=== PATIENT | female | born 1990 | race Two or more races ===

== ENCOUNTER 2025-05-07 18:01 | Emergency (ER) | payer MEDICAID, SELFPAY ==
[2025-05-07 18:02] VITALS: BMI 21.9
[2025-05-07 18:24] VITALS: BP 145/98; PULSE 86; RESP 16; TEMP 37; O2SAT 97; BMI 21.9
--- NOTE | 2025-05-07 18:38 | PD.EDEXREM ---
ED Extremity Problem RME/HPI General Chief complaint: Extremity Problem,Nontraumatic Stated complaint: LEFT LEG PAIN AND UNABLE TO FEEL LEG FOR 6 MONTHS Time Seen by Provider: 05/07/25 18:33 Arrival date/time: 05/07/25 18:01 34F with no significant PMH presents to ED with 6 months of intermittent LLE pain and paresthesia that starts in L lower back and radiates to LLE along sciatic nerve pain. Limitations: no limitations Related Data Previous Rx's ?Medication ?Instructions ?Recorded gabapentin 300 mg capsule 300 mg PO BID PRN nerve pain #10 05/07/25 caps Allergies Allergy/AdvReac Type Severity Reaction Status Date / Time Penicillins Allergy Severe Rash Verified 05/07/25 18:02 Review of Systems Review of Systems Systems Reviewed: All systems reviewed, normal except as documented Musculoskeletal Musculoskeletal: Reports as per HPI, Reports back pain and Reports radiating pain into limb Past Medical History Past Medical History NEUROLOGIC: Negative Neurological Disorders or Seizures CARDIAC: Negative Cardiac Disorders or Congestive Heart Failure RESPIRATORY: Negative Chronic Obstructive Pulmonary Disease (COPD) GASTROINTESTINAL: Negative Gastrointestinal Disorders GENITOURINARY: Negative Genitourinary Disorders or Renal Disease REPRODUCTIVE: Positive Previous Pregnancies MUSCULOSKELETAL: Negative Musculoskeletal Disorders ENDOCRINE: Negative Endocrine Disorders, Diabetes Mellitus Type 1 or Diabetes Mellitus Type 2 HEMATOLOGIC: Positive Blood Disorders and Anemia PSYCHO/SOCIAL: Negative Psychiatric Problems, Depression or Eating Disorder OTHER HISTORY: Positive Chicken Pox; Negative Hospitalization, Autoimmune Disease, Shingles, Blood Transfusions, Blood Transfusion Reaction, Anesthesia Reactions or Cancer Family History FAMILY HISTORY: Positive Family Cardiac Disorders and Family Surgery; Negative Family Psychiatric Problems, Family Respiratory Disorders, Family Gastrointestinal Problems, Family Cancer or Family Anesthesia Reaction Surgical History SURGICAL: Positive Open Reduction Internal Fixation (Left heel, has a plate) Social History SMOKING STATUS: Never smoker ED Exam General Limitations: Present no limitations General appearance: Present alert, in no apparent distress and anxious Head Head exam: Present atraumatic Neck Neck exam: Present normal inspection, full ROM and trachea midline Chest Chest inspection: Present normal inspection and symmetric chest wall rise Extremities Exam Extremities exam: Present normal inspection and full ROM Neurological Exam Neurological exam: Present alert and oriented X3 Psychiatric Psychiatric exam: Present normal affect and anxious Skin Skin exam: Present warm, dry, intact and normal color Course Quality Measures none Vital Signs Vital signs: Vital Signs Temperature 98.6 F 05/07/25 18:24 Pulse Rate 86 05/07/25 18:24 Respiratory Rate 16 05/07/25 18:24 Blood Pressure 145/98 H 05/07/25 18:24 Pulse Oximetry (%) 97 05/07/25 18:24 Oxygen Delivery Method Room Air 05/07/25 18:24 O2 at 97% on RA and WNLs Extremity Problem MDM Narrative MDM Narrative:: 34F with no significant PMH presents to ED with 6 months of intermittent LLE pain and paresthesia that starts in L lower back and radiates to LLE along sciatic nerve pain. Physical exam reveals reveals no redness or swelling of LLE. Gait normal. Patient is afebrile, alert, but anxious. Blood Tester given. Patient data External records reviewed:: [facility] previous records Clinical information provided by:: patient Social determinants that could affect healthcare access:: none Patient has the following chronic illnesses:: none How is presenting disease/condition affected by chronic disease/condition?: no chronic disease Evaluation data The following diagnostics were reviewed and interpreted by me:: other (specify) (none) Lab and/or radiology exams considered but not ordered:: not ordered Interpretation Summary: n/a Medications / Prescriptions Medications or Prescriptions considered but not ordered:: not ordered Medication administrations:: n/a Consultations Consultation(s) initiated? (list below): No Diagnosis Extremity Problem Differential Diagnosis: herpes zoster, gout, cellulitis, superficial thrombophlebitis, deep venous thrombosis of upper extremity, lower extremity edema and deep vein thrombosis of lower extremity Most likely diagnosis given after review of the tests above:: sciatica Admission Indicated Admission indicated?: not indicated Admission Request Was there a request for admission?: No Disposition Plan Disposition Plan: Discharge Discharge Attestation Discharge Attestation: The patient and all family members were given an opportunity to ask questions and understood the discharge instructions. Discharge instructions specifically effects, indications for sooner follow up or return to the emergency department, and the expected course of current diagnosis. Patient condition: Stable Discharge Plan Plan Patient Disposition: HOME (Self Care) Discharge Disposition comment: Stable Prescriptions/Referrals Prescriptions/Med Rec: New gabapentin 300 mg capsule 300 mg PO BID PRN (Reason: nerve pain) Qty: 10 0RF Problem List Clinical Impression: Sciatica Patient/Caregiver Discharge Instructions Education Materials: ED Sciatica Additional Instructions: Please follow-up with PCP within 24-48 hours and return immediately if symptoms worsen. If problem persists, recommend outpatient PT and/or MRI follow-up. In the meantime, rest, use ice/heat, and/or compression. Try this med. If it doesn't work stop taking it. Try taking it at night. If it works and you need more, ask PCP. Print Language: Khmer Stand Alone Forms: Patient Portal Info Letter PA/SUPERVISOR GRAPHITE Supervising Physician PA/SUPERVISOR GRAPHITE Supervising Physician: Dr. Sibley
== END 2025-05-07 18:52 | disposition home or self-care (01) ==
LOC: SERX 18:42
PROVIDERS: Emergency Provider Emergency Medicine; PCP Family Medicine
DX: M54.42 Lumbago with sciatica, left side (principal)
CPT/HCPCS: 99281

== ENCOUNTER 2025-07-23 14:18 | Outpatient (AMB) | payer MEDICAID, SELFPAY ==
[2025-07-23 14:30] VITALS: BP 145/91; PULSE 63; RESP 18; TEMP 36.7; O2SAT 96; BMI 24.3
--- NOTE | 2025-07-23 14:30 | GYNCLNT_ITS ---
Vital Signs 07/23/25 14:30 Height 1.7 m Height Method Stated Weight 70.307 kg Weight Measurement Method Standing Scale BMI 24.3 BP 145/91 H Blood Pressure Source Automatic Cuff Blood Pressure Location Right Upper Arm Position Sitting Respiration 18 Pulse 63 Pulse Source Monitor Temp 98.1 F Temp Source Temporal Artery Scan Pulse Oximetry (%) 96 Oxygen Delivery Method Room Air Allergies/Home Meds Allergies & Medications Allergies Penicillins Allergy (Severe, Verified 07/23/25 14:31) Rash Medication Reconciliation gabapentin 300 mg capsule 300 mg PO BID PRN nerve pain #10 caps 05/07/25 [Rx Confirmed 07/23/25] Intake Visit Data Collection New Patient or Established: Established Patient (seen at [facility] within 3 years) Reason for Visit:: REFERRAL IUD REMOVAL Seen by Clinical Staff ONLY (RN/MA): No Workers Compensation Legal Secretary Required: No Do You Feel Safe at Home: Yes Authorities Contacted: N/A PCP or OBGYN visit in last 3 months: No Hx Now: No Are you currently on any form of Control: Yes Last menstrual period: 07/13/25 Pain Present Currently: No Pain Scale Used: Shoemaker-Gonzalez/Numerical Smoking Status Smoking Status: Never smoker Immunizations Flu Vaccine in the Last 12 Months: No Flu Vaccine Exclusion Criteria: No Exclusion Criteria 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 Menstrual regularity: irregular Flow: light Monthly: Yes How many days does period last: 1 Age at menarche: 14 Currently 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 1. Little interest or pleasure in doing things: not at all 2. Feeling down, depressed, or hopeless: not at all Total score: 0 PHQ-9 3. Trouble falling or staying asleep, or sleeping too much: Not at all 4. Feeling tired or having little energy: Not at all 5. Poor appetite or overeating: Not at all 6. Feeling bad about yourself - or that you are a failure or have let yourself or your family down: Not at all 7. Trouble concentrating on things, such as reading the newspaper or watching television: Not at all 8. Moving or speaking so slowly that other people could have noticed? - Or the opposite - being so fidgety or restless that you have been moving around a lot more than usual: not at all 9. Thoughts that you would be better off or of hurting yourself in some way: Not at all Total score: 0 If you checked off any problems, how difficult have these problems made it for you to do your work, take care of things at home, or get along with other people?: not difficult at all Source: Developed by Drs. Jonas Rene, Ariana Araujo, Dilan Magaña and colleagues, with an educational braydon from [employer] Depression screen completed yes Social History Living Situation History Marital Status: Unknown Lives With: Alone Housing: Apartment Tobacco History Smoking Status: Never smoker Second Hand Smoke Exposure: No Alcohol History Alcohol Intake: Never Domestic Abuse History Do You Feel Safe at Home: Yes History of Present Illness HPI Narrative Consult for surgical removal of retained IUD fragment, pelvic pain, decreased mobility in leg, bowel movement problems, irregular periods with only spotting for one day Sierra Branham presents for consultation regarding surgical removal of a retained copper IUD fragment measuring 8 millimeters on X-ray. The patient reports having a copper IUD inserted approximately [address] [facility]. The IUD was broken during removal by a balance wheel screw hole tapper, who informed the patient that she would need to see a specialist for the retained fragment. In 2022, the patient underwent a failed hysteroscopy performed by Dr. Aguilar, who removed excess tissue but reported not visualizing the IUD fragment, though he believed he had removed it due to the amount of tissue excised. Two years later, the fragment remains present and the patient is experiencing significant symptoms. The patient reports severe uterine pain and describes feeling like she loses mobility in her left leg with associated numbness on that side. She also experiences problems with bowel movements. Her menstrual pattern has changed significantly, with periods consisting of only spotting for one day rather than regular menstruation. The patient denies current sexual activity and is not using any control. Additional symptoms include recently elevated blood pressure and high cholesterol levels found by her primary care provider. The patient wonders if the pain might be contributing to her high blood pressure. She has one child from a normal conception and delivery, after which the IUD was placed. Medical History: - High cholesterol - Hypertension Surgical History: - Hysteroscopy in [address] Aguilar for retained IUD fragment removal, procedure unsuccessful with removal of excess tissue but IUD fragment not visualized or removed Obstetric History: - GTPAL: G1 T1 L1 - One prior that was normally conceived and resulted in the delivery of one living child - Patient received copper IUD after delivery of her child Social History: - Has one child - Not currently sexually active Diagnostic Test Results and Labs: - X-ray: 8 millimeter retained IUD fragment identified (actual report not available for review) - Hysteroscopy (2022, performed by Dr. Aguilar): Failed to visualize retained IUD fragment Exam General General Appearance: alert, in no apparent distress and healthy appearing Head Head exam: atraumatic Neck Neck exam: Present normal inspection and trachea midline Chest Chest inspection: Present normal inspection and symmetric chest wall rise External exam: Present normal external exam; Absent tenderness Neuro Neurological exam: Present oriented X3 Psych Psychiatric exam: Present normal affect and normal mood Office Procedures OBC Clinic LOC & Office Proc's Nursing/Assessment Patient Status: Established Patient OB Clinic Nursing Assessment: Medication Reconciliation, Update PMH in EMR and Vital Signs OB Clinic Coordination of Care: Complex Care and Chronic Disease 1-5, Education Complex Pt/Fam, Consent,records obtained, informed consent, Lab and Imaging orders and Results/Orders obtained Established Patient Charge Established Patient Point Assignment: 100 Established Patient Point Charge: EP Level 3 (80-115) Assessment & Plan Diagnosis / Problem List (1) Mechanical complication of IUD: Status: Acute (2) Oligomenorrhea: Status: Acute Plan Retained copper IUD fragment Assessment: Patient has an 8-millimeter retained copper IUD fragment identified on X-ray following failed hysteroscopic removal by Dr. Aguilar in 2022. The original copper IUD was placed approximately 13 years ago and was broken during attempted removal by a balance wheel screw hole tapper. During the 2022 hysteroscopy, Dr. Aguilar removed excess tissue but did not visualize the fragment, though believed it was removed. Given that a skilled surgeon was unable to locate the fragment during hysteroscopy and the fragment remains present two years later, there is concern for possible uterine perforation with migration of the fragment outside the uterine cavity. Plan: - Order stat CT scan from pelvis to abdomen to locate exact position of IUD fragment and assess for possible uterine perforation or migration - Review X-ray images from [facility] to determine precise location within uterus - Follow-up appointment after imaging to review results and determine surgical approach (hysteroscopy versus laparoscopy based on fragment location) - Obtain detailed insurance information for surgical approval Pelvic pain with associated symptoms Assessment: Patient reports significant pelvic pain associated with the retained IUD fragment, along with unilateral left leg numbness and decreased mobility, and bowel movement difficulties. The leg symptoms are unlikely to be directly related to uterine pathology. Pain may be contributing to recently elevated blood pressure. Plan: - Address pain management as part of overall treatment plan for retained IUD fragment - CT scan will help determine if fragment location explains symptom pattern Irregular menstrual bleeding Assessment: Patient reports abnormal menstrual pattern with only spotting for one day rather than regular monthly periods. She is not currently sexually active or using hormonal contraception. This irregular bleeding pattern requires hormonal evaluation to determine etiology. Plan: - Order blood work to check ovarian hormones - Evaluate hormonal status in context of irregular bleeding pattern
== END 2025-07-23 14:45 | disposition home or self-care (01) ==
LOC: HODSOBC 14:18
PROVIDERS: PCP Family Medicine; Referring Provider Family Medicine; Supervising Provider Obstetrics & Gynecology; Visit Provider Obstetrics & Gynecology
DX: T83.39XA Other mechanical complication of intrauterine contraceptive device, initial encounter (principal); N91.5 Oligomenorrhea, unspecified; E78.00 Pure hypercholesterolemia, unspecified; I10 Essential (primary) hypertension; Z88.0 Allergy status to penicillin; Y84.8 Other medical procedures as the cause of abnormal reaction of the patient, or of later complication, without mention of misadventure at the time of the procedure
CPT/HCPCS: 99213; G0463

== ENCOUNTER → 2025-07-28 | Outpatient (CLI) | payer MEDICAID, SELFPAY ==
[2025-07-28 15:37] LABS: HCG Qualitative,Urine Negative
--- NOTE | 2025-07-28 15:52 | XR_ITS ---
Examination: CT abdomen with intravenous contrast CT pelvis with intravenous contrast 2-D coronal reconstructions 2-D sagittal reconstructions Date and time of exam: July 28, 2025, 1716 hours INDICATIONS: Mechanical complications of IUD, retained foreign body, symptoms 3 years. CTDI: vol (mGy) 17.1 DLP: (mGycm) 568 Technique: Multiple axial sections of the abdomen and pelvis have been obtained. 64 slice high-resolution scanner used. 3 mm axial sections have been obtained, post intravenous injection 60 cc [id number] 2-D sagittal, coronal reconstructions obtained. Low dose protocols were performed. One or more of the following dose reduction techniques were used; automated exposure control, adjustment of the mA and/or KV according to patient size, use of iterative reconstruction technique. Findings: No visualized liver or splenic lesion No gallstones No pancreatic mass. No renal or ureteral calculi Aorta normal size Normal appendix No bowel obstruction 23 mm hypodense left pelvic mass Right adnexal region measures 4.5 cm left adnexal region 3.2 cm Anteverted uterus Intrauterine device in the lower uterine segment and cervix Endometrial stripe 26 mm Bladder intact Mild osteopenia IMPRESSION: Intrauterine device low in position in the lower uterine segment and cervix Recommend pelvic sonography follow-up to assess 23 mm hypodense left pelvic mass and prominent adnexal regions, 4.5 cm on the right, 3.2 cm on the left
== END | disposition home or self-care (01) ==
LOC: SDIM 14:48
PROVIDERS: PCP Family Medicine; Referring Provider Obstetrics & Gynecology; Visit Provider Obstetrics & Gynecology
DX: T83.39XA Other mechanical complication of intrauterine contraceptive device, initial encounter (principal); Z32.00 Encounter for pregnancy test, result unknown
CPT/HCPCS: 74177; 81025; A4649; Q9967

== ENCOUNTER 2025-08-11 14:46 | Outpatient (AMB) | payer MEDICAID, SELFPAY ==
--- NOTE | 2025-08-11 15:24 | AMB.GYNCLNOT ---
Allergies/Home Meds Allergies & Medications Allergies Penicillins Allergy (Severe, Verified 08/11/25 15:25) Rash Medication Reconciliation gabapentin 300 mg capsule 300 mg PO BID PRN nerve pain #10 caps 05/07/25 [Rx Confirmed 08/11/25] Intake Visit Data Collection New Patient or Established: Established Patient (seen at [facility] within 3 years) Reason for Visit:: CT RESULTS TELE MED Consent obtained for Telemed Visit: Yes Seen by Clinical Staff ONLY (RN/MA): No Fire Technician Required: No Do You Feel Safe at Home: Yes Authorities Contacted: N/A PCP or OBGYN visit in last 3 months: No Hx Now: No Are you currently on any form of Control: Yes Last menstrual period: 07/13/25 Pain Present Currently: No Pain Scale Used: Shoemaker-Gonzalez/Numerical Smoking Status Smoking Status: Never smoker Immunizations Flu Vaccine in the Last 12 Months: No Flu Vaccine Exclusion Criteria: No Exclusion Criteria For Telemed visit only Telemed Video/Phone Visit: Yes Verbal consent obtained for Telemed visit?: Yes Verbal Consent witness name: FADI PALAFOX MA Telemed Video/Phone visit w/Clinical Staff: 5-10 min 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 Menstrual regularity: irregular Flow: light Monthly: Yes How many days does period last: 1 Age at menarche: 14 Currently 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 1. Little interest or pleasure in doing things: not at all 2. Feeling down, depressed, or hopeless: not at all Total score: 0 PHQ-9 3. Trouble falling or staying asleep, or sleeping too much: Not at all 4. Feeling tired or having little energy: Not at all 5. Poor appetite or overeating: Not at all 6. Feeling bad about yourself - or that you are a failure or have let yourself or your family down: Not at all 7. Trouble concentrating on things, such as reading the newspaper or watching television: Not at all 8. Moving or speaking so slowly that other people could have noticed? - Or the opposite - being so fidgety or restless that you have been moving around a lot more than usual: not at all 9. Thoughts that you would be better off or of hurting yourself in some way: Not at all Total score: 0 If you checked off any problems, how difficult have these problems made it for you to do your work, take care of things at home, or get along with other people?: not difficult at all Source: Developed by Drs. Jonas Rene, Ariana Araujo, Dilan Magaña and colleagues, with an educational braydon from [employer]. Depression screen completed yes Social History Living Situation History Marital Status: Unknown Lives With: Alone Housing: Apartment Tobacco History Smoking Status: Never smoker Second Hand Smoke Exposure: No Alcohol History Alcohol Intake: Never Domestic Abuse History Do You Feel Safe at Home: Yes History of Present Illness HPI Narrative Sierra Yonas presents for follow-up regarding an intrauterine device (IUD) that requires removal. The patient had a recent CT scan which revealed that the IUD is located inside the uterus and is clearly visible on imaging. Her uterus is noted to be significantly tipped, which likely contributed to difficulty visualizing the IUD during a previous procedure performed by Dr. Aguilar. Due to the uterine positioning and angle, the IUD was not able to be located or removed during the initial attempt. The patient will need to undergo another procedure for IUD removal, which will be performed using camera guidance to ensure proper visualization and successful removal of the device. ROS: Negative except as stated above, limited to AGENT CONTRACT CLERK and pertinent complaints. Office Procedures OBC Clinic LOC & Office Proc's Nursing/Assessment Patient Status: Established Patient OB Clinic Nursing Assessment: Medication Reconciliation, Update PMH in EMR and Vital Signs OB Clinic Coordination of Care: Complex Care and Chronic Disease 1-5, Education Complex Pt/Fam, Consent,records obtained, informed consent, Lab and Imaging orders, Results/Orders obtained and Staff clarify orders Established Patient Charge Established Patient Point Assignment: 110 Telehealth If patient is seen using Teleconference methods, complete New/Est section, but DO NOT corey points only corey the correct Telemed visit type Telemed Phone/Video with patient at home & BLAIR Carroll,NURSING ASSOC: Yes Telemed Phone/Video with patient in Clinic w/,NURSING ASSOC,PA outside Clinic: Yes Assessment & Plan Diagnosis / Problem List (1) Oligomenorrhea: Status: Acute (2) Mechanical complication of IUD: Status: Acute (3) Malposition of uterus: Status: Acute Plan Retained Intrauterine Device: - CT scan confirmed IUD is located inside the uterus and clearly visible. - The uterus is significantly retroverted, which likely prevented visualization during previous removal attempt by Dr. Aguilar. - The angled position of the uterus explains the difficulty in locating the device during the initial procedure. Plan: - Hysteroscopic IUD removal under camera guidance. - Obtain surgery approval through insurance. - Schedule pre-operative visit once surgery is approved. - Review imaging and explain procedure details during pre-op appointment. - Patient to fast for 8 hours prior to procedure (nothing to eat after 10 PM). - Arrival time at 7 AM on procedure day. - Patient will be called once surgery is approved to schedule pre-operative visit.
== END 2025-08-11 15:12 | disposition home or self-care (01) ==
LOC: HODSOBC 14:46
PROVIDERS: PCP Family Medicine; Referring Provider Family Medicine; Supervising Provider Obstetrics & Gynecology; Visit Provider Obstetrics & Gynecology
DX: T83.39XA Other mechanical complication of intrauterine contraceptive device, initial encounter (principal); N91.5 Oligomenorrhea, unspecified; N85.4 Malposition of uterus; Z88.0 Allergy status to penicillin; Y76.2 Prosthetic and other implants, materials and accessory obstetric and gynecological devices associated with adverse incidents; Y84.8 Other medical procedures as the cause of abnormal reaction of the patient, or of later complication, without mention of misadventure at the time of the procedure
CPT/HCPCS: 99212; Q3014; G0463